=== PATIENT | female | born 1980 | race Caucasian/White ===

== ENCOUNTER 2017-04-02 18:20 | Emergency (ER) | payer OTHER ==
--- NOTE | 2017-04-02 18:52 | RADIOLOGY REPORT ---
HISTORY: Twisting injury with pain. COMPARISON: None available. FINDINGS: 2 views of the right ankle obtained. There is no acute fracture. There is a small bone island in the distal tibia. The ankle mortise is intact. There is no soft tissue swelling. No significant degenerative changes are noted. IMPRESSION: 1. No fracture. Final Electronic Signature: This report was electronically signed by Stef Saini MD on 04/02/2017 6:49 PM. sross /
--- NOTE | 2017-04-02 19:12 | ER PHYSICIAN DOCUMENTATION ---
Physician Documentation [facility] Name:Nicole Gomez Age:36 yrs Sex:Female :1980 Arrival Date:04/02/2017 Time:18:20 Bed6 Private MD: Elvis Delcid Disposition: 04/02/17 19:01 Discharged to Home/Self Care. Impression: Ankle Sprain. - Condition is Good. - Discharge Instructions: TAYA WRAP, Ankle - SPRAIN ANKLE (w/ x-ray). - Medical Reconciliation form form. - Follow up: Private Physician; When: As needed; Reason: Worsening of condition, Continuance of care. - Problem is new. - Symptoms are unchanged. HPI: 04/03 09:12 This 36 yrs old Female presents to ER via Wheelchair with complaints of Ankle be Injury - RIGHT. 09:12 The patient presents with decreased range of motion, an injury, pain, that is acute, be swelling, tenderness. The complaints affect the right ankle. Context: The mechanism of injury involved inversion of the affected ankle. The patient can partially bear weight on the affected extremity. the patient is able to ambulate, with mild difficulty. The patient has experienced a previous episode, approximately 2 years ago. Historical: - Allergies: No known drug Allergies; - Tetanus: < 10 years. - Ebola Screening: : Patient negative for fever greater than or equal to 101.5 degrees Fahrenheit, and additional compatible Ebola Virus Disease symptoms. Patient denies exposure to infectious person. Patient denies travel to an Ebola-affected area in the 21 days before illness onset. No symptoms or risks identified at this time. . - Immunization history: Flu Vaccine None. - Social history: Smoking status: Patient states was never smoker of tobacco. ROS: 09:12 MS/extremity: Positive for injury or acute deformity, decreased range of motion, be swelling, tenderness. 09:12 All other systems are negative. Exam: 09:12 Musculoskeletal/extremity: Extremities: grossly normal except: noted in the right be ankle and anterior aspect of right ankle: decreased ROM, pain, swelling, tenderness. Vital Signs: 04/02 18:31 BP 103 / 64; Pulse 69; Resp 16; Temp 99.1; Pulse Ox 96% ; Weight 68.04 kg; Height 5 ft. jt 6 in. (167.64 cm); Pain 4/10; 19:10 BP 110 / 62; Pulse 79; Resp 18; Pulse Ox 95% ; Pain 3/10; bw2 18:31 Body Mass Index 24.21 (68.04 kg, 167.64 cm) jt MDM: 18:59 Patient medically screened. 04/03 09:12 Differential diagnosis: fracture, sprain. Data reviewed: and as a result, I will be discharge patient. 04/02 18:53 Order name: ANKLE; [address] [place] [id number]; Complete Time: 09:12 EDMS 04/03 09:12 Interpretation: Normal. 04/02 18:44 Order name: Ice Packs; Complete Time: 18:44 bw2 Dispensed Medications: No medications were administered Signatures: Elvis Dang MD MD be Wisely Constanza bw2
--- NOTE | 2017-04-02 19:12 | ER NURSING DOCUMENTATION ---
Nurse's Notes [facility] Name:Nicole Gomez Age:36 yrs Sex:Female :1980 Arrival Date:04/02/2017 Time:18:20 Bed6 Private MD: Diagnosis:Ankle Sprain Presentation: 04/02 18:33 Presenting complaint: Patient states: she rolled her right ankle while getting out of bw2 truck. Transition of care: patient was not received from another setting of care. 18:33 Acuity: CARITO 4 bw2 18:33 Method Of Arrival: Wheelchair bw2 Triage Assessment: 18:34 General: Appears in no apparent distress, comfortable, Behavior is appropriate for age. bw2 Pain: Complains of pain in right ankel. Musculoskeletal: Reports pain in right ankel. Historical: - Allergies: No known drug Allergies; - Tetanus: < 10 years. - Ebola Screening: : Patient negative for fever greater than or equal to 101.5 degrees Fahrenheit, and additional compatible Ebola Virus Disease symptoms. Patient denies exposure to infectious person. Patient denies travel to an Ebola-affected area in the 21 days before illness onset. No symptoms or risks identified at this time. . - Immunization history: Flu Vaccine None. - Social history: Smoking status: Patient states was never smoker of tobacco. Screenin:35 Infectious Disease Risk None. Abuse screen: Denies threats or abuse. Nutritional bw2 screening: No deficits noted. Assessment: 18:35 See Triage Assessment done by same RN. bw2 Vital Signs: 18:31 BP 103 / 64; Pulse 69; Resp 16; Temp 99.1; Pulse Ox 96% ; Weight 68.04 kg; Height 5 ft. jt 6 in. (167.64 cm); Pain 4/10; 19:10 BP 110 / 62; Pulse 79; Resp 18; Pulse Ox 95% ; Pain 3/10; bw2 18:31 Body Mass Index 24.21 (68.04 kg, 167.64 cm) jt ED Course: 18:24 Patient arrived in ED. ama 18:25 Constanza Bolton is Primary Nurse. bw2 18:29 Elvis Dang MD is Attending Physician. be 18:34 Triage completed. bw2 18:36 Valuables Remains with patient. bw2 18:44 ice applied to right ankle. bw2 18:54 Port Xray Completed. mr Administered Medications: No medications were administered Outcome: 19:01 Discharge ordered by . be 19:10 Discharged to home via wheelchair, with significant other. 2 19:10 Condition: good 19:10 Discharge Assessment: Patient awake, alert and oriented x 3. No cognitive and/or functional deficits noted. Patient verbalized understanding of disposition instructions. 19:10 Discharge instructions given to patient, Instructed on discharge instructions, follow up and referral plans. Demonstrated understanding of instructions. 19:11 Patient left the ED. [facility] 04/03 10:26 Discharge F/U Call: Unable to reach: no answer 16:08 Discharge F/U Call: Unable to reach: left voicemail: [email or web address] Signatures: Faiza Miles, RN RN Elvis Blackwood MD MD be Kruger, Meg, RN RN 2 Torsten Encarnacion, Angel Gaam, Constanza Joshua 2 Claudia Hale Michael mr
== END 2017-04-02 19:12 | disposition home or self-care (01) ==
LOC: ER 18:20
DX: S96.911A Strain of unspecified muscle and tendon at ankle and foot level, right foot, initial encounter (principal); W18.49XA Other slipping, tripping and stumbling without falling, initial encounter
CPT/HCPCS: 99283